=== PATIENT | female | born 1990 | race Caucasian/White ===

== ENCOUNTER 2021-03-02 18:54 | Observation (INO) | payer SELFPAY ==
[~2021-03-02] VITALS: Ht 167.6 cm; Wt 65.3 kg
[2021-03-02 23:01] LABS: BASO # 0.1 K/mm3 (0.0-0.2); BASO % 0.8 % (0.0-2.0); EOS # 0.9 K/mm3 (0.0-0.7); EOS % 9.8 % (0-4.0); GRAN # 3.9 K/mm3 (1.4-6.5); GRAN % 44.5 % (42.2-75.2); HEMATOCRIT 42.3 % (37.0-47.0); LYMPH % 33.8 % (20.0-51.0); MEAN CELL VOLUME 91 fl (80.0-100.0); MEAN CORPUSCULAR HEMOGLOBIN 30 pg (27.0-31.0); MEAN CORPUSCULAR HGB CONC 33 g/dl (33.0-37.0); MEAN PLATELET VOLUME 11.5 fl (7.4-10.4); PLATELET COUNT 389 K/mm3 (130-400); RED BLOOD COUNT 4.67 M/mm3 (4.10-5.30); REDCELL DISTRIBUTION WIDTH-CV 13.6 % (11.5-14.5)
[2021-03-02 23:14] LABS: ALBUMIN 3.9 gm/dL (3.5-5.0); BILIRUBIN,TOTAL 0.2 mg/dL (0.2-1.2); CALCIUM 9.4 mg/dL (8.4-10.2); CREATININE, serum 0.93 mg/dL (0.57-1.11); MAGNESIUM 2.1 mg/dL (1.6-2.6); POTASSIUM 4.2 mmol/L (3.5-4.5); TOTAL PROTEIN 7.8 gm/dL (6.2-8.1)
[2021-03-03] MEDS ORDERED: PROVENTIL0.09 MG/A1 INH (00:56)
--- NOTE | 2021-03-03 02:41 | NUR ---
Patient arrived medical floor room 319 around 00:25 am from ER. Patient alert and oriented. Patient denies any pain or discomfort. Patient reports having some SOB but feeling much better compare to earlier. Patient currently on oxygen 1L via NC. Breathing slightly tachypnic. Audible wheezing noted. Non-productive occasional cough noted. Offered sandwich box and ice water. Patient tolerated PO food without difficulty. No N/V noted. Oriented patient to the room. Admission paperwork completed. Call light in reach. Will continue to monitor.
[2021-03-03 05:12] VITALS: BP 114/73; PULSE 106; TEMP 98
--- NOTE | 2021-03-03 06:57 | NUR ---
Pt. progressing w/ plan of care. Report received from JACQUI Salazar. Pt. resting in bed w/ eyes closed at this time, call light and belongings in reach.
[2021-03-03 07:45] VITALS: BP 116/58; PULSE 112; TEMP 97.9
--- NOTE | 2021-03-03 08:02 | NUR ---
Pt. progressing w/ plan of care. PRN robitussin administered for dry cough. Pt. reports mild pain in back from coughing but denies other concerns. O2 at 2L via nasal cannula being administered. Pt. denies further needs at this time, call light and belongings in reach.
[2021-03-03 12:09] VITALS: BP 110/47; PULSE 106; TEMP 99.1
--- NOTE | 2021-03-03 13:17 | NUR ---
recycle worker met with patient to discuss discharge plan. Patient states that she is currently living with her mother Maria D ([phone]) here in [place]. Patient reports that she works in [place] currently but is in the process of transfering to [employer] [employer]. Patient states that she is fully independent with her activities of daily living and she does not utilize any medical equipment to assist with ambulation. Patient reports that she does not use O2 at home and has been uble to afford her inhaler. Patient reports that she does not currently have a PCP but that she utilizes [facility] for perscriptions and has not had any trouble in the past being able to afford them. Patient states that she does not have a DPOA-HC established and does not wish to complete form at this time. Patient states that she is and has children but they are not of age. Children are currently living with their biological father in [place]. 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 Financial counselor Bobbi contacted to review this patient. Upon discharge, the patient will need to be established with Marguerite and i informed her that we would be able to provide a medication voucher for her inhaler. Discharge plan: Home with mother
--- NOTE | 2021-03-03 13:18 | NUR ---
First visit from the data warehousing engineer. No needs right now.
[2021-03-03 15:24] VITALS: BP 115/63; PULSE 107; TEMP 99
--- NOTE | 2021-03-03 16:11 | NUR ---
Pt. reporting general body aches and chills. MIKI Bailey notified on telephone, new order for PRN Ibuprofen and tylenol obtained. Ice pack provided for pain to pt.'s lower back.
[2021-03-03 19:49] VITALS: BP 107/51; PULSE 118; TEMP 99.4
[2021-03-04 00:15] VITALS: BP 102/58; PULSE 95; TEMP 97.8
[2021-03-04 05:09] VITALS: BP 104/60; PULSE 86; TEMP 98.4
[2021-03-04 07:00] LABS: HEMATOCRIT 38.7 % (37.0-47.0); HEMOGLOBIN 12.6 g/dl (12.5-16.0); MEAN CELL VOLUME 93 fl (80.0-100.0); MEAN CORPUSCULAR HEMOGLOBIN 30 pg (27.0-31.0); MEAN CORPUSCULAR HGB CONC 33 g/dl (33.0-37.0); MEAN PLATELET VOLUME 11.1 fl (7.4-10.4); PLATELET COUNT 329 K/mm3 (130-400); RED BLOOD COUNT 4.17 M/mm3 (4.10-5.30)
[2021-03-04 07:11] LABS: CALCIUM 9.6 mg/dL (8.4-10.2); CREATININE, serum 0.69 mg/dL (0.57-1.11); POTASSIUM 4.2 mmol/L (3.5-4.5)
--- NOTE | 2021-03-04 07:12 | NUR ---
New critical WBC resulted this AM. MIKI Bailey notified on telephone. Pt. resting in bed quietly w/ eyes closed. Call light and belongings in reach.
[2021-03-04 08:00] VITALS: BP 116/58; PULSE 101; TEMP 97.8
[2021-03-04 08:09] LABS: BAND 10 % (0-10); LYMPHOCYTE 5 % (20.0-51.0); NEUTROPHILS 85 % (42.0-75.2); PLATELET ESTIMATE NORMAL (NORMAL)
--- NOTE | 2021-03-04 10:21 | NUR ---
Pt. progressing w/ plan of care. Pt. reports feeling better today. This RN assessed lung sounds on pt. yesterday and today, lungs sound clear today, compared to yesterday when pt. was wheezing. Needs addressed, call light and belongings in reach.
[2021-03-04] MEDS ORDERED: PROVENTIL0.09 MG/A1 INH (10:38)
[2021-03-04] MEDS ORDERED: PULMICORT180 MCG/Ac IH (10:40)
[2021-03-04] MEDS ORDERED: PREDNISONE20 MG PO (10:41)
[2021-03-04 11:36] VITALS: BP 113/61; PULSE 117; TEMP 97.8
--- NOTE | 2021-03-04 12:40 | NUR ---
Pt. has discharge orders in place. IV removed, site c/d/i. Pt. was given albuterol inhaler by registered pharmacist Mónica. leather worker Candice provided pt. with voucher for prednisone as well as her other inhaler. Discharge paperwork reviewed with patient and all questions answered. Plan for pt. to eat her lunch and her mom will pick her up after she eats.
--- NOTE | 2021-03-04 13:44 | NUR ---
School Community Relations Coordinator spoke with MIKI Feliciano who advised patient will discharge today and needs assistance with obtaining medications as she has no insurance and cannot afford her medications. YASMIN collaborated with pharmacy who advised they would provide one of the needed inhalers. YASMIN prepared medication voucher for Pulmicort inhaler and Prednisone, totaling $266. YASMIN contacted Doug at [facility] and faxed over medication voucher and prescriptions. YASMIN then met with patient to provide medication voucher. YASMIN advised patient that this is a one time voucher and patient verbalized understanding. YASMIN collaborated with Alexi Webb who secured patient an appointment at the [facility]. Discharge Plan: Home
== END 2021-03-04 13:35 | disposition home or self-care (01) ==
LOC: COL.ER 18:54 → MEDICAL 22:54
PROVIDERS: Student in an Organized Health Care Education/Training Program; ADMIT Internal Medicine
DX: J45.901 Unspecified asthma with (acute) exacerbation (principal); F32.A Depression, unspecified; F41.9 Anxiety disorder, unspecified; F17.210 Nicotine dependence, cigarettes, uncomplicated; Z79.899 Other long term (current) drug therapy
CPT/HCPCS: 99232-AI; 99239; G0378; J1650; J2930

== ENCOUNTER 2021-11-21 22:23 | Emergency (ER) | payer SELFPAY ==
[~2021-11-21] VITALS: Ht 167.6 cm; Wt 68.2 kg
[~2021-11-21 22:23] MED LIST: PREDNISONE20 MG PO; PROVENTIL0.09 MG/A1 INH; PULMICORT180 MCG/Ac IH
[2021-11-21 22:30] VITALS: BP 127/96; TEMP 98.2
[2021-11-21] MEDS ORDERED: AMOXICILLIN 8751 TAB PO (22:42)
[2021-11-21 23:08] VITALS: PULSE 101
== END 2021-11-21 23:13 | disposition home or self-care (01) ==
LOC: COL.ER 22:23
DX: K04.7 Periapical abscess without sinus (principal); K02.9 Dental caries, unspecified; F17.200 Nicotine dependence, unspecified, uncomplicated; Z28.310 Unvaccinated for COVID-19
CPT/HCPCS: J1885